=== PATIENT | male | born 1935 | race Caucasian/White ===

== ENCOUNTER 2020-12-11 11:09 | Inpatient (IN) | payer MEDICARE ==
[~2020-12-11] VITALS: Ht 172.7 cm; Wt 65.5 kg
[~2020-12-11 11:09] MED LIST: LEVO-28 PO; MELO-61 PO; MORP30TA PO; OXY10CRT PO; PANT40T PO; TAM04C PO
[2020-12-11 12:09] LABS: Basophils # (auto) 0.1 10 ^3/uL (0-0.2); Basophils % (auto) 1.4 % (0.0-2.0); Eosinophils # (auto) 0.4 10 ^3/uL (0-0.8); Eosinophils % (auto) 3.5 % (0.0-7.0); Hematocrit 39.4 % (41.0-53.0); Hemoglobin 13.7 g/dL (13.5-17.5); Lymphocytes # (auto) 2.5 10 ^3/uL (0.4-5.4); Lymphocytes % (auto) 25.1 % (10.0-50.0); Mean Corpuscular Hemoglobin 31.2 pg (28.0-32.0); Mean Corpuscular Hgb Conc. 34.8 g/dL (32.0-36.0); Mean Corpuscular Volume 89.7 fL (80.0-100.0); Monocytes % (auto) 9.5 % (0.0-12.0); Neutrophils # (auto) 6.1 10 ^3/uL (1.6-8.6); Neutrophils % (auto) 60.5 % (37.0-80.0); Nucleated Red Blood Cells % 0.1 %; Red Blood Cells 4.39 10^6/uL (4.5-5.90); Red Cell Distribution Width 14.4 % (11.8-14.3); White Blood Cell 10.1 10^3/uL (4.4-10.8)
[2020-12-11 12:37] LABS: Albumin 2.9 g/dL (3.4-5.0)
[2020-12-11 12:40] LABS: BUN/Creatinine Ratio 18.3; Total Protein 7.5 g/dL (6.4-8.2)
[2020-12-11 12:42] LABS: Magnesium 2.5 mg/dL (1.6-2.6)
[2020-12-11 12:45] LABS: Potassium 2.7 mmol/L (3.5-5.1)
[2020-12-11 14:06] LABS: INR 1.08 (0.9-1.15); Partial Thromboplastin Time 29.7 sec (23.0-31.2)
[2020-12-11] MEDS: POTASSIUM CHL 20MEQ/100ML 100 ML IV SCH ×2 (15:09→16:15)
[2020-12-11] MEDS ORDERED: ONDANSETRON HCL 4 MG/2 ML VIAL IV PRN (16:00)
[2020-12-11] MEDS ORDERED: MORPHINE SULFATE INJECTION 2 MG/ML SYRG IV PRN (16:00)
[2020-12-11] MEDS ORDERED: ACETAMINOPHEN 500 MG TAB PO PRN (16:00)
[2020-12-11] MEDS ORDERED: POTASSIUM EFFERVESENT TAB 25 MEQ GT ONE (16:00)
[2020-12-11] MEDS: FAMOTIDINE (10MG/ML) 2ML VL IV SCH (16:48)
[2020-12-11] MEDS: SOD CHL 0.9%/ KCL 40MEQ 1,000 ML IV SCH (16:58)
[2020-12-11 20:28] VITALS: BP 140/70
[2020-12-11 20:31] VITALS: BP 140/70
[2020-12-12] MEDS: SOD CHL 0.9%/ KCL 40MEQ 1,000 ML IV SCH ×3 (02:00→22:00)
[2020-12-12] MEDS: FAMOTIDINE (10MG/ML) 2ML VL IV SCH (04:35)
[2020-12-12 04:49] LABS: Urine Bacteria FEW /hpf (None Seen); Urine Blood 2+ /uL (Negative); Urine Hyaline Cast FEW /lpf (0 - 2); Urine Specific Gravity 1.009 (1.001-1.035); Urine WBC 3 /hpf (0 - 3)
[2020-12-12 05:25] VITALS: BP 123/71
[2020-12-12 08:02] LABS: Potassium 3.1 mmol/L (3.5-5.1)
[2020-12-12 08:08] LABS: Albumin 2.8 g/dL (3.4-5.0); Bilirubin, Total 1.1 mg/dL (0.2-1.0); Calcium 8.9 mg/dL (8.5-10.1); Total Protein 7.2 g/dL (6.4-8.2)
[2020-12-12 09:00] VITALS: BP 135/64
[2020-12-12] MEDS: PANTOPRAZOLE 40 MG TAB PO SCH (12:55)
[2020-12-12 13:00] VITALS: BP 123/72
[2020-12-12 17:00] VITALS: BP 127/68
[2020-12-12] MEDS ORDERED: POTASSIUM CHL 20 Meq TABLET PO ONE (18:15)
[2020-12-12] MEDS: TAMSULOSIN HYDROCHLORIDE 0.4 MG CAP PO SCH (18:44)
[2020-12-12] MEDS ORDERED: POTASSIUM EFFERVESENT TAB 25 MEQ GT ONE (19:00)
[2020-12-12 22:00] VITALS: BP 116/63
[2020-12-13 05:00] VITALS: BP 133/58
[2020-12-13] MEDS: SOD CHL 0.9%/ KCL 40MEQ 1,000 ML IV SCH ×3 (08:00→23:35)
[2020-12-13 09:00] VITALS: BP 124/69
[2020-12-13] MEDS: PANTOPRAZOLE 40 MG TAB PO SCH (10:12)
[2020-12-13] MEDS ORDERED: cefTRIAXone 1GM/50ML D5W 50 ML IV ONE (10:30)
[2020-12-13 13:00] VITALS: BP 128/71
[2020-12-13 13:33] LABS: Hematocrit 40.1 % (41.0-53.0); Hemoglobin 13.5 g/dL (13.5-17.5); Mean Corpuscular Hemoglobin 30.9 pg (28.0-32.0); Mean Corpuscular Hgb Conc. 33.8 g/dL (32.0-36.0); Mean Corpuscular Volume 91.5 fL (80.0-100.0); Red Blood Cells 4.39 10^6/uL (4.5-5.90); White Blood Cell 8.3 10^3/uL (4.4-10.8)
[2020-12-13 13:49] LABS: BUN/Creatinine Ratio 13.5; Calcium 9.1 mg/dL (8.5-10.1); Potassium 3.7 mmol/L (3.5-5.1)
[2020-12-13 13:52] LABS: Bilirubin, Total 0.9 mg/dL (0.2-1.0); Total Protein 7.3 g/dL (6.4-8.2)
[2020-12-13] MEDS ORDERED: metroNIDAZOLE 500MG/100ML 100 ML IV SCH (14:00)
[2020-12-13 14:01] LABS: Band Neutrophils % (manual) 0; Basophils % (manual) 0 (0.0-2.0); Blast Cells 0; Eosinophils % (manual) 0 (0-7); Metamyelocytes % 0; Promyelocytes % 0; Reactive Lymphocytes 0
[2020-12-13 14:03] LABS: Lymphocytes % (manual) 25 (10.0-50.0); Monocytes % (manual) 9 (0-12); Myelocytes % 1
[2020-12-13 17:00] VITALS: BP 120/62
[2020-12-13] MEDS: TAMSULOSIN HYDROCHLORIDE 0.4 MG CAP PO SCH (18:00)
[2020-12-13 22:00] VITALS: BP 117/55
[2020-12-13] MEDS: traMADol HCL 50 MG TAB PO PRN (22:29)
[2020-12-14 05:00] VITALS: BP 146/67
[2020-12-14] MEDS: cefTRIAXone 1GM/50ML D5W 50 ML IV SCH (08:58)
[2020-12-14 09:04] VITALS: BP 126/69
[2020-12-14] MEDS: PANTOPRAZOLE 40 MG TAB PO SCH (09:34)
[2020-12-14] MEDS ORDERED: LACTULOSE 20Gm/30ML SOLN PEG ONE (10:45)
[2020-12-14 12:59] VITALS: BP 123/70
[2020-12-14] MEDS: SODIUM CHLORIDE 0.9% 1,000 ML IV SCH (14:50)
[2020-12-14 16:18] VITALS: BP 145/75
[2020-12-14] MEDS: TAMSULOSIN HYDROCHLORIDE 0.4 MG CAP PO SCH (18:00)
[2020-12-14 22:00] VITALS: BP 146/73
[2020-12-15 01:19] LABS: Urine Bacteria MOD /hpf (None Seen); Urine Blood 3+ /uL (Negative); Urine Mucus FEW (None Seen); Urine Specific Gravity 1.013 (1.001-1.035); Urine WBC 53 /hpf (0 - 3)
[2020-12-15] MEDS: SODIUM CHLORIDE 0.9% 1,000 ML IV SCH (04:20)
[2020-12-15 05:00] VITALS: BP 140/75
[2020-12-15 05:47] LABS: Basophils # (auto) 0 10 ^3/uL (0-0.2); Basophils % (auto) 0.6 % (0.0-2.0); Eosinophils # (auto) 0.3 10 ^3/uL (0-0.8); Eosinophils % (auto) 5.1 % (0.0-7.0); Hematocrit 36.1 % (41.0-53.0); Hemoglobin 12.6 g/dL (13.5-17.5); Lymphocytes # (auto) 1.4 10 ^3/uL (0.4-5.4); Lymphocytes % (auto) 24.4 % (10.0-50.0); Mean Corpuscular Hemoglobin 32.1 pg (28.0-32.0); Mean Corpuscular Hgb Conc. 34.8 g/dL (32.0-36.0); Mean Corpuscular Volume 92.4 fL (80.0-100.0); Monocytes # (auto) 0.4 10 ^3/uL (0-1.3); Monocytes % (auto) 7.6 % (0.0-12.0); Neutrophils # (auto) 3.6 10 ^3/uL (1.6-8.6); Neutrophils % (auto) 62.3 % (37.0-80.0); Red Blood Cells 3.91 10^6/uL (4.5-5.90); Red Cell Distribution Width 15.1 % (11.8-14.3); White Blood Cell 5.7 10^3/uL (4.4-10.8)
[2020-12-15 06:05] LABS: INR 1.1 (0.9-1.15); Partial Thromboplastin Time 30.9 sec (23.0-31.2)
[2020-12-15 06:06] LABS: BUN/Creatinine Ratio 13.2; Calcium 8.6 mg/dL (8.5-10.1); Potassium 3.8 mmol/L (3.5-5.1)
[2020-12-15 08:40] VITALS: BP 160/72
[2020-12-15] MEDS: cefTRIAXone 1GM/50ML D5W 50 ML IV SCH (09:00)
[2020-12-15] MEDS: PANTOPRAZOLE 40 MG TAB PO SCH (09:39)
[2020-12-15 13:14] VITALS: BP 147/71
[2020-12-15] MEDS: traMADol HCL 50 MG TAB PO PRN (14:30)
[2020-12-15 16:52] VITALS: BP 134/60
[2020-12-15] MEDS: TAMSULOSIN HYDROCHLORIDE 0.4 MG CAP PO SCH (17:37)
[2020-12-15 22:00] VITALS: BP 137/61
[2020-12-16 05:00] VITALS: BP 123/58
[2020-12-16 09:00] VITALS: BP 131/80
[2020-12-16 13:00] VITALS: BP 128/59
[2020-12-16 14:18] VITALS: BP 128/89
[2020-12-16] MEDS: PANTOPRAZOLE 40 MG TAB PO SCH (15:01)
[2021-01-02] MEDS ORDERED: DOCU-94 PO (12:42)
== END 2020-12-16 17:34 | disposition home health service (06) | DRG 694 ==
LOC: ER 11:09 → EDBD 11:09 → OVERFLOW 15:47 → WEST WING 17:54
PROVIDERS: ADMIT Internal Medicine; ATTEND Internal Medicine
DX: N20.0 Calculus of kidney (principal); K56.7 Ileus, unspecified; N39.0 Urinary tract infection, site not specified; E44.0 Moderate protein-calorie malnutrition; E87.6 Hypokalemia; K80.20 Calculus of gallbladder without cholecystitis without obstruction; Z93.1 Gastrostomy status; I25.10 Atherosclerotic heart disease of native coronary artery without angina pectoris; M10.9 Gout, unspecified; R31.9 Hematuria, unspecified; N40.0 Benign prostatic hyperplasia without lower urinary tract symptoms; I10 Essential (primary) hypertension; Z74.01 Bed confinement status; Z20.822 Contact with and (suspected) exposure to COVID-19; Z83.3 Family history of diabetes mellitus; Z82.49 Family history of ischemic heart disease and other diseases of the circulatory system; Z80.3 Family history of malignant neoplasm of breast; Z80.42 Family history of malignant neoplasm of prostate; G89.29 Other chronic pain; Z68.21 Body mass index [BMI] 21.0-21.9, adult; Z87.442 Personal history of urinary calculi; Z90.49 Acquired absence of other specified parts of digestive tract; Z95.1 Presence of aortocoronary bypass graft; Z95.2 Presence of prosthetic heart valve
CPT/HCPCS: 36415; 71045; 74176; 76705; 76775; 78226; 80048; 80053; 81001; 83690; 83735; 84132; 84154; 85007; 85025; 85027; 85610; 85730; 86850; 86900; 86901; 87086; 87426; 93005; 93306; 96365; 96375; 97110; 97530; G0378; J0696; J3480; J3490

== ENCOUNTER 2020-12-26 23:01 | Inpatient (IN) | payer MEDICARE ==
[~2020-12-26] VITALS: Ht 167.6 cm; Wt 61.7 kg
[~2020-12-26 23:01] MED LIST changes: -LEVO-28 PO; -MELO-61 PO; -MORP30TA PO; -OXY10CRT PO
[2020-12-27 01:43] LABS: Basophils # (auto) 0 10 ^3/uL (0-0.2); Basophils % (auto) 0.4 % (0.0-2.0); Eosinophils # (auto) 0.1 10 ^3/uL (0-0.8); Eosinophils % (auto) 0.5 % (0.0-7.0); Hematocrit 41.5 % (41.0-53.0); Lymphocytes # (auto) 1.1 10 ^3/uL (0.4-5.4); Lymphocytes % (auto) 9.4 % (10.0-50.0); Mean Corpuscular Hemoglobin 30.5 pg (28.0-32.0); Mean Corpuscular Hgb Conc. 33.7 g/dL (32.0-36.0); Mean Corpuscular Volume 90.5 fL (80.0-100.0); Monocytes # (auto) 0.8 10 ^3/uL (0-1.3); Monocytes % (auto) 6.2 % (0.0-12.0); Neutrophils # (auto) 10.2 10 ^3/uL (1.6-8.6); Neutrophils % (auto) 83.5 % (37.0-80.0); Platelet Count (auto) 168 10^3/uL (140-450); Red Blood Cells 4.58 10^6/uL (4.5-5.90); Red Cell Distribution Width 14.8 % (11.8-14.3); White Blood Cell 12.2 10^3/uL (4.4-10.8)
[2020-12-27 01:50] LABS: Albumin 2.9 g/dL (3.4-5.0); Calcium 8.8 mg/dL (8.5-10.1); Magnesium 2.5 mg/dL (1.6-2.6); Potassium 3.9 mmol/L (3.5-5.1)
[2020-12-27 01:51] LABS: Bilirubin, Total 0.7 mg/dL (0.2-1.0); Total Protein 8.1 g/dL (6.4-8.2)
[2020-12-27 04:02] LABS: Basophils # (auto) 0.1 10 ^3/uL (0-0.2); Basophils % (auto) 0.7 % (0.0-2.0); Eosinophils # (auto) 0.1 10 ^3/uL (0-0.8); Eosinophils % (auto) 0.6 % (0.0-7.0); Hematocrit 42.3 % (41.0-53.0); Hemoglobin 14.4 g/dL (13.5-17.5); Lymphocytes % (auto) 15.8 % (10.0-50.0); Mean Corpuscular Hemoglobin 30.9 pg (28.0-32.0); Mean Corpuscular Hgb Conc. 34.1 g/dL (32.0-36.0); Mean Corpuscular Volume 90.7 fL (80.0-100.0); Monocytes # (auto) 0.9 10 ^3/uL (0-1.3); Monocytes % (auto) 7.1 % (0.0-12.0); Neutrophils # (auto) 9.6 10 ^3/uL (1.6-8.6); Neutrophils % (auto) 75.8 % (37.0-80.0); Nucleated Red Blood Cells % 0.1 %; Platelet Count (auto) 177 10^3/uL (140-450); Red Blood Cells 4.66 10^6/uL (4.5-5.90); Red Cell Distribution Width 15.1 % (11.8-14.3); White Blood Cell 12.7 10^3/uL (4.4-10.8)
[2020-12-27] MEDS ORDERED: IOHEXOL 300 MG/ML 100ML BOTTLE IJ ONE (04:21)
[2020-12-27 04:22] LABS: Alanine Aminotransferase 11 U/L (16-61); Anion Gap 7 (5-15); Aspartate Aminotransferase 15 U/L (15-37); BUN/Creatinine Ratio 17.5; Blood Urea Nitrogen 17 mg/dL (7-18); Calcium 9.2 mg/dL (8.5-10.1); Carbon Dioxide 30 mmol/L (21-32); Chloride 105 mmol/L (98-107); GFR African American 94 mL/min; GFR Non-African American 78 mL/min; Glucose 139 mg/dL (74-106); Lipase 43 U/L (73-393); Magnesium 2.7 mg/dL (1.6-2.6); Potassium 3.8 mmol/L (3.5-5.1); Sodium 142 mmol/L (136-145)
[2020-12-27 04:27] LABS: Alkaline Phosphatase 92 U/L (45-117); Bilirubin, Total 0.8 mg/dL (0.2-1.0); Total Protein 8.5 g/dL (6.4-8.2)
[2020-12-27] MEDS ORDERED: NITROGLYCERIN 0.4 MG SL TAB SL PRN (07:30)
[2020-12-27] MEDS ORDERED: ONDANSETRON HCL 4 MG/2 ML VIAL IV PRN (07:30)
[2020-12-27] MEDS ORDERED: MORPHINE SULFATE 4 MG/ML SYR/VIAL IV PRN (07:30)
[2020-12-27] MEDS ORDERED: MORPHINE SULF INJ 2 MG/ML SYRINGE 1ML IV PRN (07:30)
[2020-12-27] MEDS: SODIUM CHLORIDE 0.9% 1,000 ML IV SCH ×2 (07:55→23:15)
[2020-12-27] MEDS: cefTRIAXone 1GM/50ML D5W 50 ML IV SCH (09:43)
[2020-12-27] MEDS: PANTOPRAZOLE 40 MG/10 ML VIAL INJ IV SCH (10:39)
[2020-12-27 13:20] VITALS: BP 115/64
[2020-12-27] MEDS ORDERED: hydrALAZINE HCL 20 MG/ML VL IV PRN (14:00)
[2020-12-27] MEDS ORDERED: GASTROGRAFIN 120 ML SOL ONE (14:19)
[2020-12-27] MEDS ORDERED: ASCO500T11 PO (14:28)
[2020-12-27 17:21] VITALS: BP 127/67
[2020-12-27 22:00] VITALS: BP 149/83
[2020-12-28 01:43] LABS: Urine Bacteria FEW /hpf (None Seen); Urine Blood 1+ /uL (Negative); Urine Hyaline Cast FEW /lpf (0 - 2); Urine Specific Gravity 1.047 (1.001-1.035); Urine WBC 2 /hpf (0 - 3)
[2020-12-28 05:00] VITALS: BP 132/65
[2020-12-28 07:39] LABS: Basophils # (auto) 0.1 10 ^3/uL (0-0.2); Basophils % (auto) 0.5 % (0.0-2.0); Eosinophils # (auto) 0.1 10 ^3/uL (0-0.8); Eosinophils % (auto) 1.3 % (0.0-7.0); Hematocrit 37.2 % (41.0-53.0); Hemoglobin 12.6 g/dL (13.5-17.5); Lymphocytes # (auto) 1.7 10 ^3/uL (0.4-5.4); Lymphocytes % (auto) 15.8 % (10.0-50.0); Mean Corpuscular Hemoglobin 31.3 pg (28.0-32.0); Mean Corpuscular Hgb Conc. 33.8 g/dL (32.0-36.0); Mean Corpuscular Volume 92.7 fL (80.0-100.0); Monocytes # (auto) 0.9 10 ^3/uL (0-1.3); Monocytes % (auto) 8.7 % (0.0-12.0); Neutrophils # (auto) 7.8 10 ^3/uL (1.6-8.6); Neutrophils % (auto) 73.7 % (37.0-80.0); Platelet Count (auto) 137 10^3/uL (140-450); Red Blood Cells 4.02 10^6/uL (4.5-5.90); Red Cell Distribution Width 15.4 % (11.8-14.3); White Blood Cell 10.5 10^3/uL (4.4-10.8)
[2020-12-28 08:00] VITALS: BP 112/60
[2020-12-28 08:02] LABS: Albumin 2.7 g/dL (3.4-5.0); BUN/Creatinine Ratio 22.3; Bilirubin, Total 0.8 mg/dL (0.2-1.0); Calcium 8.5 mg/dL (8.5-10.1)
[2020-12-28] MEDS: PANTOPRAZOLE 40 MG/10 ML VIAL INJ IV SCH (10:14)
[2020-12-28] MEDS: SODIUM CHLORIDE 0.9% 1,000 ML IV SCH ×2 (10:14→23:43)
[2020-12-28] MEDS: cefTRIAXone 1GM/50ML D5W 50 ML IV SCH (10:14)
[2020-12-28 12:30] VITALS: BP 118/62
[2020-12-28 17:00] VITALS: BP 128/64
[2020-12-28 20:00] VITALS: BP 127/70
[2020-12-28 22:00] VITALS: BP 127/70
[2020-12-29 05:00] VITALS: BP 145/67
[2020-12-29 07:11] LABS: Calcium 8.6 mg/dL (8.5-10.1); Potassium 3.8 mmol/L (3.5-5.1)
[2020-12-29 07:15] LABS: BUN/Creatinine Ratio 24.7
[2020-12-29 09:00] VITALS: BP 139/83
[2020-12-29] MEDS: cefTRIAXone 1GM/50ML D5W 50 ML IV SCH (09:53)
[2020-12-29] MEDS: PANTOPRAZOLE 40 MG/10 ML VIAL INJ IV SCH (09:53)
[2020-12-29] MEDS: D5W/SOD CHL 0.45% 1,000 ML IV SCH ×2 (10:02→22:50)
[2020-12-29 13:00] VITALS: BP 145/64
[2020-12-29 17:00] VITALS: BP 133/63
[2020-12-29 22:00] VITALS: BP 149/70
[2020-12-29] MEDS: MUPIROCIN 2% OINT 15gm or 22gm EACHNOSTRI SCH (22:14)
[2020-12-30 05:00] VITALS: BP 154/76
[2020-12-30 06:52] LABS: Basophils # (auto) 0 10 ^3/uL (0-0.2); Basophils % (auto) 0.5 % (0.0-2.0); Eosinophils # (auto) 0.3 10 ^3/uL (0-0.8); Eosinophils % (auto) 3.5 % (0.0-7.0); Hematocrit 34.4 % (41.0-53.0); Hemoglobin 12.2 g/dL (13.5-17.5); Lymphocytes # (auto) 1.8 10 ^3/uL (0.4-5.4); Lymphocytes % (auto) 23.2 % (10.0-50.0); Mean Corpuscular Hemoglobin 32.1 pg (28.0-32.0); Mean Corpuscular Hgb Conc. 35.5 g/dL (32.0-36.0); Mean Corpuscular Volume 90.4 fL (80.0-100.0); Monocytes # (auto) 0.7 10 ^3/uL (0-1.3); Monocytes % (auto) 8.7 % (0.0-12.0); Neutrophils % (auto) 64.1 % (37.0-80.0); Platelet Count (auto) 115 10^3/uL (140-450); Red Cell Distribution Width 14.9 % (11.8-14.3); White Blood Cell 7.8 10^3/uL (4.4-10.8)
[2020-12-30 07:09] LABS: Potassium 3.2 mmol/L (3.5-5.1)
[2020-12-30 07:12] LABS: BUN/Creatinine Ratio 19.7; Calcium 8.6 mg/dL (8.5-10.1); Magnesium 2.4 mg/dL (1.6-2.6)
[2020-12-30 09:00] VITALS: BP 138/63
[2020-12-30] MEDS: cefTRIAXone 1GM/50ML D5W 50 ML IV SCH (10:28)
[2020-12-30] MEDS: PANTOPRAZOLE 40 MG/10 ML VIAL INJ IV SCH (10:29)
[2020-12-30] MEDS: MUPIROCIN 2% OINT 15gm or 22gm EACHNOSTRI SCH ×2 (10:29→23:04)
[2020-12-30] MEDS: D5W/SOD CHL 0.45% 1,000 ML IV SCH ×2 (10:34→11:51)
[2020-12-30] MEDS ORDERED: POTASSIUM EFFERVESENT TAB 25 MEQ PO ONE (11:00)
[2020-12-30 13:00] VITALS: BP 127/65
[2020-12-30 16:39] VITALS: BP 128/69
[2020-12-30] MEDS: TAMSULOSIN HYDROCHLORIDE 0.4 MG CAP PO SCH (17:32)
[2020-12-30 22:00] VITALS: BP 119/63
[2020-12-31] MEDS: D5W/SOD CHL 0.45% 1,000 ML IV SCH ×2 (02:51→20:20)
[2020-12-31 05:00] VITALS: BP 137/67
[2020-12-31 09:00] VITALS: BP 126/69
[2020-12-31] MEDS: MUPIROCIN 2% OINT 15gm or 22gm EACHNOSTRI SCH ×2 (10:09→22:00)
[2020-12-31] MEDS: PANTOPRAZOLE 40 MG/10 ML VIAL INJ IV SCH (10:09)
[2020-12-31 13:00] VITALS: BP 119/71
[2020-12-31 17:00] VITALS: BP 112/64
[2020-12-31] MEDS: TAMSULOSIN HYDROCHLORIDE 0.4 MG CAP PO SCH (18:04)
[2020-12-31 22:00] VITALS: BP 127/67
[2021-01-01 05:00] VITALS: BP 100/61
[2021-01-01 09:00] VITALS: BP 148/69
[2021-01-01] MEDS: PANTOPRAZOLE 40 MG/10 ML VIAL INJ IV SCH (10:12)
[2021-01-01] MEDS: MUPIROCIN 2% OINT 15gm or 22gm EACHNOSTRI SCH ×2 (10:12→21:20)
[2021-01-01 13:00] VITALS: BP 115/64
[2021-01-01] MEDS: D5W/SOD CHL 0.45% 1,000 ML IV SCH (13:12)
[2021-01-01 17:00] VITALS: BP 107/61
[2021-01-01] MEDS: TAMSULOSIN HYDROCHLORIDE 0.4 MG CAP PO SCH (17:19)
[2021-01-01 22:00] VITALS: BP 84/52
[2021-01-02 05:00] VITALS: BP 110/58
[2021-01-02] MEDS: D5W/SOD CHL 0.45% 1,000 ML IV SCH (05:24)
[2021-01-02 09:14] VITALS: BP 109/66
[2021-01-02] MEDS: PANTOPRAZOLE 40 MG/10 ML VIAL INJ IV SCH (10:27)
[2021-01-02] MEDS: MUPIROCIN 2% OINT 15gm or 22gm EACHNOSTRI SCH (10:55)
[2021-01-02] MEDS ORDERED: DOCU-94 PO (12:42)
[2021-01-02 13:39] VITALS: BP 120/62
[2021-01-02 15:06] VITALS: BP 120/62
== END 2021-01-02 16:35 | disposition home health service (06) | DRG 389 ==
LOC: EDBD 23:01 → ER 23:13 → TELE 12-27 07:18 → TELE-EAST 12-27 12:57
PROVIDERS: ADMIT Nurse Practitioner; ATTEND Internal Medicine
DX: K56.609 Unspecified intestinal obstruction, unspecified as to partial versus complete obstruction (principal); E44.0 Moderate protein-calorie malnutrition; R65.10 Systemic inflammatory response syndrome (SIRS) of non-infectious origin without acute organ dysfunction; Z20.822 Contact with and (suspected) exposure to COVID-19; E87.6 Hypokalemia; I10 Essential (primary) hypertension; M10.9 Gout, unspecified; N40.0 Benign prostatic hyperplasia without lower urinary tract symptoms; I25.10 Atherosclerotic heart disease of native coronary artery without angina pectoris; Z80.3 Family history of malignant neoplasm of breast; Z80.42 Family history of malignant neoplasm of prostate; Z83.3 Family history of diabetes mellitus; Z87.442 Personal history of urinary calculi; Z87.440 Personal history of urinary (tract) infections; Z95.1 Presence of aortocoronary bypass graft; Z79.899 Other long term (current) drug therapy; Z79.891 Long term (current) use of opiate analgesic; Z79.01 Long term (current) use of anticoagulants; I25.2 Old myocardial infarction; Z90.49 Acquired absence of other specified parts of digestive tract; Z68.22 Body mass index [BMI] 22.0-22.9, adult; Z82.49 Family history of ischemic heart disease and other diseases of the circulatory system; Z86.73 Personal history of transient ischemic attack (TIA), and cerebral infarction without residual deficits
CPT/HCPCS: 36415; 71045; 74018; 74177; 74250; 80048; 80053; 81001; 83605; 83690; 83735; 84132; 84484; 85025; 85049; 87081; 87426; 93005; 96365; 96366; 96375; 97110; 97530; C9113; G0378; J0696; J2405

== ENCOUNTER 2021-01-19 12:04 | Emergency (ER) | payer MEDICARE ==
[~2021-01-19] VITALS: Ht 170.2 cm; Wt 74.8 kg
[~2021-01-19 12:04] MED LIST changes: +ASCO500T11 PO; +DOCU-94 PO
[2021-01-19] MEDS ORDERED: SODIUM CHLORIDE 0.9% 500 ML IVB ONE (12:15)
[2021-01-19 13:57] LABS: Basophils # (auto) 0 10 ^3/uL (0-0.2); Basophils % (auto) 0.6 % (0.0-2.0); Eosinophils # (auto) 0.4 10 ^3/uL (0-0.8); Eosinophils % (auto) 4.9 % (0.0-7.0); Hematocrit 40.4 % (41.0-53.0); Hemoglobin 13.8 g/dL (13.5-17.5); Lymphocytes % (auto) 36.5 % (10.0-50.0); Mean Corpuscular Hemoglobin 30.8 pg (28.0-32.0); Mean Corpuscular Hgb Conc. 34.1 g/dL (32.0-36.0); Mean Corpuscular Volume 90.4 fL (80.0-100.0); Monocytes # (auto) 0.7 10 ^3/uL (0-1.3); Monocytes % (auto) 8.4 % (0.0-12.0); Neutrophils % (auto) 49.6 % (37.0-80.0); Nucleated Red Blood Cells % 0.1 %; Red Blood Cells 4.47 10^6/uL (4.5-5.90); Red Cell Distribution Width 15.2 % (11.8-14.3); White Blood Cell 8.1 10^3/uL (4.4-10.8)
[2021-01-19 14:17] LABS: BUN/Creatinine Ratio 15.6; Total Protein 7.8 g/dL (6.4-8.2)
[2021-01-19] MEDS ORDERED: POTASSIUM EFFERVESENT TAB 25 MEQ GT ONE (14:45)
[2021-01-19] MEDS ORDERED: CEPHALEXIN 250 MG/5ml ORAL Susp 200ML BTL GT ONE (15:00)
[2021-01-19 15:19] VITALS: BP 158/67
== END 2021-01-19 15:02 | disposition home or self-care (01) ==
LOC: ER 12:04 → EDBD 12:04 → ER 15:02
DX: L03.311 Cellulitis of abdominal wall (principal); E87.6 Hypokalemia; K59.00 Constipation, unspecified; I10 Essential (primary) hypertension; I25.2 Old myocardial infarction; I25.10 Atherosclerotic heart disease of native coronary artery without angina pectoris; M10.9 Gout, unspecified; Z86.73 Personal history of transient ischemic attack (TIA), and cerebral infarction without residual deficits; Z79.899 Other long term (current) drug therapy
CPT/HCPCS: 36415; 74022; 74176; 80053; 83690; 85025; 99285; J7040

== ENCOUNTER 2021-05-15 18:25 | Inpatient (IN) | payer MEDICARE ==
[~2021-05-15] VITALS: Ht 170.2 cm; Wt 71.0 kg
[2021-05-15] MEDS ORDERED: methylPREDNISolone SOD SUCC 125 MG/2 ML VL IV ONE (19:30)
[2021-05-15] MEDS ORDERED: cefTRIAXone 1GM/50ML D5W 50 ML IV ONE (20:30)
[2021-05-15 21:31] LABS: Basophils # (auto) 0 10 ^3/uL (0-0.2); Basophils % (auto) 0.2 % (0.0-2.0); Eosinophils # (auto) 0 10 ^3/uL (0-0.8); Hematocrit 34.4 % (41.0-53.0); Hemoglobin 11.8 g/dL (13.5-17.5); Lymphocytes # (auto) 0.9 10 ^3/uL (0.4-5.4); Lymphocytes % (auto) 15.4 % (10.0-50.0); Mean Corpuscular Hemoglobin 29.9 pg (28.0-32.0); Mean Corpuscular Hgb Conc. 34.4 g/dL (32.0-36.0); Mean Corpuscular Volume 86.9 fL (80.0-100.0); Monocytes # (auto) 0.3 10 ^3/uL (0-1.3); Monocytes % (auto) 4.8 % (0.0-12.0); Neutrophils # (auto) 4.7 10 ^3/uL (1.6-8.6); Neutrophils % (auto) 79.6 % (37.0-80.0); Nucleated Red Blood Cells % 0.2 %; Red Blood Cells 3.96 10^6/uL (4.5-5.90); Red Cell Distribution Width 15.3 % (11.8-14.3); White Blood Cell 5.9 10^3/uL (4.4-10.8)
[2021-05-15] MEDS ORDERED: MORPHINE SULFATE INJECTION 2 MG/ML SYRG IV PRN (21:45)
[2021-05-15] MEDS ORDERED: ACETAMINOPHEN 500 MG TAB PO PRN (21:45)
[2021-05-15] MEDS ORDERED: NITROGLYCERIN 0.4 MG SL TAB SL PRN (21:45)
[2021-05-15] MEDS ORDERED: ONDANSETRON HCL 4 MG/2 ML VIAL IV PRN (21:45)
[2021-05-15] MEDS ORDERED: ALBUTEROL SULF HFA 90MCG INH 200DOSE IN PRN (21:45)
[2021-05-15 21:48] LABS: Albumin 2.2 g/dL (3.4-5.0); Calcium 7.1 mg/dL (8.5-10.1); Potassium 3.7 mmol/L (3.5-5.1)
[2021-05-15 21:56] LABS: BUN/Creatinine Ratio 39.3; Bilirubin, Total 0.5 mg/dL (0.2-1.0); CRP High Sensitivity 4.45 mg/dL (< 0.3); Total Protein 6.6 g/dL (6.4-8.2)
[2021-05-15] MEDS: BUDESONIDE (INHALATION) 180 MCG IH IN SCH (22:00)
[2021-05-15] MEDS ORDERED: AZITHROMYCIN 500MG/ 250ML 250 ML IV SCH (22:30)
[2021-05-15] MEDS: AZITHROMYCIN 500MG/ 250ML 250 ML IV SCH (23:00)
[2021-05-15] MEDS ORDERED: REMDESIVIR PER PHARMACY 0 ML IV SCH (23:15)
[2021-05-16 00:56] VITALS: BP 100/46
[2021-05-16 07:58] LABS: Basophils # (auto) 0 10 ^3/uL (0-0.2); Eosinophils # (auto) 0 10 ^3/uL (0-0.8); Hematocrit 34.1 % (41.0-53.0); Lymphocytes # (auto) 0.4 10 ^3/uL (0.4-5.4); Red Cell Distribution Width 15.2 % (11.8-14.3)
[2021-05-16 08:00] LABS: Hemoglobin 12.1 g/dL (13.5-17.5); Lymphocytes % (auto) 7.7 % (10.0-50.0); Mean Corpuscular Hemoglobin 30.5 pg (28.0-32.0); Mean Corpuscular Hgb Conc. 35.6 g/dL (32.0-36.0); Mean Corpuscular Volume 85.6 fL (80.0-100.0); Monocytes # (auto) 0.2 10 ^3/uL (0-1.3); Monocytes % (auto) 2.9 % (0.0-12.0); Neutrophils # (auto) 4.9 10 ^3/uL (1.6-8.6); Neutrophils % (auto) 89.4 % (37.0-80.0); Red Blood Cells 3.98 10^6/uL (4.5-5.90); White Blood Cell 5.5 10^3/uL (4.4-10.8)
[2021-05-16 08:11] LABS: Albumin 2.2 g/dL (3.4-5.0); Calcium 7.3 mg/dL (8.5-10.1); Potassium 3.6 mmol/L (3.5-5.1)
[2021-05-16 08:14] LABS: BUN/Creatinine Ratio 40.4; Bilirubin, Total 0.4 mg/dL (0.2-1.0)
[2021-05-16] MEDS: ZINC SULFATE 220mg CAP or TAB PO SCH (09:44)
[2021-05-16] MEDS: DexAMETHasone SOD PHOS 10MG/1ML VIAL INJ IV SCH (09:44)
[2021-05-16] MEDS: cefTRIAXone 1GM/50ML D5W 50 ML IV SCH (09:44)
[2021-05-16] MEDS: ASCORBIC ACID 1,000 MG TAB PO SCH (09:44)
[2021-05-16] MEDS: PANTOPRAZOLE 40 MG TAB PO SCH (09:44)
[2021-05-16] MEDS: CHOLECALCIFEROL (VITD3) 2,000 UNIT CAP/TAB PO SCH (09:44)
[2021-05-16] MEDS ORDERED: ASPirin 81 mg TAB PO SCH (10:00)
[2021-05-16] MEDS ORDERED: TRAM50TA2 PO (10:28)
[2021-05-16 13:00] VITALS: BP 152/102
[2021-05-16] MEDS ORDERED: REMDESIVIR 200 MG in NS 210ml LOADING DOSE ADULT IV ONE (13:00)
[2021-05-16] MEDS: BUDESONIDE (INHALATION) 180 MCG IH IN SCH ×2 (13:54→19:47)
[2021-05-16 15:05] VITALS: BP 98/53
[2021-05-16 17:00] VITALS: BP 98/53
[2021-05-16] MEDS: ENOXAPARIN SOD 40 MG/0.4 ML SYRINGE SC SCH (18:45)
[2021-05-16] MEDS: TAMSULOSIN HYDROCHLORIDE 0.4 MG CAP PO SCH (18:45)
[2021-05-16 21:52] VITALS: BP 102/52
[2021-05-16] MEDS: ATORVASTATIN 20 MG TAB PO SCH (22:27)
[2021-05-16] MEDS: AZITHROMYCIN 500MG/ 250ML 250 ML IV SCH (22:27)
[2021-05-17 05:00] VITALS: BP 114/62
[2021-05-17] MEDS: BUDESONIDE (INHALATION) 0.5 MG/2 ML NEB NEB SCH ×2 (06:30→17:32)
[2021-05-17 09:00] VITALS: BP 108/48
[2021-05-17] MEDS: cefTRIAXone 1GM/50ML D5W 50 ML IV SCH (09:00)
[2021-05-17 11:01] LABS: Basophils # (auto) 0 10 ^3/uL (0-0.2); Basophils % (auto) 0.1 % (0.0-2.0); Eosinophils # (auto) 0 10 ^3/uL (0-0.8); Eosinophils % (auto) 0.1 % (0.0-7.0); Hematocrit 35.7 % (41.0-53.0); Hemoglobin 12.4 g/dL (13.5-17.5); Lymphocytes # (auto) 0.6 10 ^3/uL (0.4-5.4); Mean Corpuscular Hemoglobin 29.8 pg (28.0-32.0); Mean Corpuscular Hgb Conc. 34.9 g/dL (32.0-36.0); Mean Corpuscular Volume 85.4 fL (80.0-100.0); Monocytes # (auto) 0.6 10 ^3/uL (0-1.3); Monocytes % (auto) 9.3 % (0.0-12.0); Neutrophils # (auto) 5.1 10 ^3/uL (1.6-8.6); Neutrophils % (auto) 81.5 % (37.0-80.0); Nucleated Red Blood Cells % 0.5 %; Red Blood Cells 4.18 10^6/uL (4.5-5.90); Red Cell Distribution Width 15.6 % (11.8-14.3); White Blood Cell 6.3 10^3/uL (4.4-10.8)
[2021-05-17 11:03] LABS: INR 0.94 (0.9-1.15)
[2021-05-17 11:19] LABS: Calcium 7.9 mg/dL (8.5-10.1); Potassium 4.3 mmol/L (3.5-5.1)
[2021-05-17 11:29] LABS: BUN/Creatinine Ratio 39.6; Bilirubin, Total 0.4 mg/dL (0.2-1.0); CRP High Sensitivity 3.64 mg/dL (< 0.3); Magnesium 3.2 mg/dL (1.6-2.6); Total Protein 6.7 g/dL (6.4-8.2)
[2021-05-17] MEDS: DexAMETHasone SOD PHOS 10MG/1ML VIAL INJ IV SCH (11:36)
[2021-05-17] MEDS: ASPirin 81 mg TAB PO SCH (11:37)
[2021-05-17] MEDS: PANTOPRAZOLE 40 MG TAB PO SCH (11:37)
[2021-05-17] MEDS: ZINC SULFATE 220mg CAP or TAB PO SCH (11:37)
[2021-05-17] MEDS: ENOXAPARIN SOD 40 MG/0.4 ML SYRINGE SC SCH (11:38)
[2021-05-17] MEDS: ASCORBIC ACID 1,000 MG TAB PO SCH (11:38)
[2021-05-17] MEDS: CHOLECALCIFEROL (VITD3) 2,000 UNIT CAP/TAB PO SCH (11:38)
[2021-05-17 13:00] VITALS: BP 110/49
[2021-05-17] MEDS: REMDESIVIR 100mg 100 MG in SODIUM CHL 0.9% 230 ML IV SCH (15:46)
[2021-05-17 17:00] VITALS: BP 97/52
[2021-05-17] MEDS: TAMSULOSIN HYDROCHLORIDE 0.4 MG CAP PO SCH (18:11)
[2021-05-17 22:00] VITALS: BP 114/60
[2021-05-17] MEDS: ATORVASTATIN 20 MG TAB PO SCH (23:15)
[2021-05-17] MEDS: AZITHROMYCIN 500MG/ 250ML 250 ML IV SCH (23:15)
[2021-05-18 05:00] VITALS: BP 113/58
[2021-05-18] MEDS: ALBUTEROL SULF 2.5 MG/0.5ML(0.5%) NEB SOLN NEB PRN ×2 (06:08→21:01)
[2021-05-18] MEDS: BUDESONIDE (INHALATION) 0.5 MG/2 ML NEB NEB SCH ×2 (06:08→21:01)
[2021-05-18 09:00] VITALS: BP 103/49
[2021-05-18] MEDS ORDERED: ADENOSINE 6 MG/2 ML INJ IV ONE ×3 (09:00→12:14)
[2021-05-18] MEDS ORDERED: SODIUM CHLORIDE 0.9% 1,000 ML IV ONE (09:45)
[2021-05-18] MEDS ORDERED: AMIODARONE 450mg/250ml AE 250 ML IV SCH ×2 (10:00→16:00)
[2021-05-18] MEDS: SODIUM CHLORIDE 0.9% 1,000 ML IV SCH (10:58)
[2021-05-18] MEDS: cefTRIAXone 1GM/50ML D5W 50 ML IV SCH (10:59)
[2021-05-18] MEDS: ENOXAPARIN SOD 40 MG/0.4 ML SYRINGE SC SCH ×2 (11:00→21:15)
[2021-05-18] MEDS: ASCORBIC ACID 1,000 MG TAB PO SCH (11:00)
[2021-05-18] MEDS: ZINC SULFATE 220mg CAP or TAB PO SCH (11:00)
[2021-05-18] MEDS: PANTOPRAZOLE 40 MG TAB PO SCH (11:00)
[2021-05-18] MEDS: ASPirin 81 mg TAB PO SCH (11:00)
[2021-05-18] MEDS: CHOLECALCIFEROL (VITD3) 2,000 UNIT CAP/TAB PO SCH (11:00)
[2021-05-18] MEDS: DexAMETHasone SOD PHOS 10MG/1ML VIAL INJ IV SCH (11:01)
[2021-05-18] MEDS ORDERED: AMIODARONE HCL (50 MG/ ML) 3 ML VIAL IV ONE (12:14)
[2021-05-18 13:00] VITALS: BP 88/47
[2021-05-18 15:12] LABS: Basophils # (auto) 0 10 ^3/uL (0-0.2); Basophils % (auto) 0.1 % (0.0-2.0); Eosinophils # (auto) 0 10 ^3/uL (0-0.8); Hematocrit 33.1 % (41.0-53.0); Hemoglobin 11.5 g/dL (13.5-17.5); Lymphocytes # (auto) 0.5 10 ^3/uL (0.4-5.4); Lymphocytes % (auto) 6.4 % (10.0-50.0); Mean Corpuscular Hemoglobin 29.9 pg (28.0-32.0); Mean Corpuscular Hgb Conc. 34.8 g/dL (32.0-36.0); Mean Corpuscular Volume 85.7 fL (80.0-100.0); Monocytes # (auto) 0.7 10 ^3/uL (0-1.3); Monocytes % (auto) 10.2 % (0.0-12.0); Neutrophils # (auto) 5.9 10 ^3/uL (1.6-8.6); Neutrophils % (auto) 83.3 % (37.0-80.0); Nucleated Red Blood Cells % 0.1 %; Red Blood Cells 3.86 10^6/uL (4.5-5.90); Red Cell Distribution Width 15.3 % (11.8-14.3); White Blood Cell 7.1 10^3/uL (4.4-10.8)
[2021-05-18 15:28] LABS: Albumin 1.9 g/dL (3.4-5.0); Calcium 7.6 mg/dL (8.5-10.1); Potassium 3.4 mmol/L (3.5-5.1)
[2021-05-18 15:31] LABS: Bilirubin, Total 0.3 mg/dL (0.2-1.0); Total Protein 5.8 g/dL (6.4-8.2)
[2021-05-18] MEDS: REMDESIVIR 100mg 100 MG in SODIUM CHL 0.9% 230 ML IV SCH (16:01)
[2021-05-18] MEDS ORDERED: POTASSIUM CHL 20 Meq TABLET PO ONE (16:15)
[2021-05-18 17:00] VITALS: BP 107/59
[2021-05-18] MEDS: Ensure HIGH Protein Chocolate 8oz Bottle GT SCH (20:11)
[2021-05-18] MEDS: TAMSULOSIN HYDROCHLORIDE 0.4 MG CAP PO SCH (20:11)
[2021-05-18] MEDS: ATORVASTATIN 20 MG TAB PO SCH (21:15)
[2021-05-18] MEDS: AZITHROMYCIN 500MG/ 250ML 250 ML IV SCH (21:16)
[2021-05-18 22:00] VITALS: BP 119/62
[2021-05-19] MEDS: SODIUM CHLORIDE 0.9% 1,000 ML IV SCH (01:23)
[2021-05-19 03:28] VITALS: BP 119/62
[2021-05-19 05:00] VITALS: BP 120/72
[2021-05-19] MEDS: BUDESONIDE (INHALATION) 0.5 MG/2 ML NEB NEB SCH ×2 (06:08→21:03)
[2021-05-19 06:53] LABS: Calcium 7.5 mg/dL (8.5-10.1)
[2021-05-19 06:56] LABS: BUN/Creatinine Ratio 33.9; CRP High Sensitivity 0.85 mg/dL (< 0.3)
[2021-05-19 06:59] LABS: Basophils # (auto) 0 10 ^3/uL (0-0.2); Basophils % (auto) 0.1 % (0.0-2.0); Eosinophils # (auto) 0 10 ^3/uL (0-0.8); Hematocrit 30.9 % (41.0-53.0); Hemoglobin 10.7 g/dL (13.5-17.5); Lymphocytes # (auto) 0.5 10 ^3/uL (0.4-5.4); Lymphocytes % (auto) 8.4 % (10.0-50.0); Mean Corpuscular Hgb Conc. 34.8 g/dL (32.0-36.0); Mean Corpuscular Volume 86.4 fL (80.0-100.0); Monocytes # (auto) 0.9 10 ^3/uL (0-1.3); Monocytes % (auto) 14.6 % (0.0-12.0); Neutrophils # (auto) 4.9 10 ^3/uL (1.6-8.6); Neutrophils % (auto) 76.9 % (37.0-80.0); Nucleated Red Blood Cells % 0.1 %; Red Blood Cells 3.57 10^6/uL (4.5-5.90); Red Cell Distribution Width 15.2 % (11.8-14.3); White Blood Cell 6.3 10^3/uL (4.4-10.8)
[2021-05-19] MEDS: Ensure HIGH Protein Chocolate 8oz Bottle GT SCH ×3 (08:00→21:00)
[2021-05-19 09:00] VITALS: BP 110/72
[2021-05-19] MEDS: cefTRIAXone 1GM/50ML D5W 50 ML IV SCH (09:01)
[2021-05-19] MEDS: DexAMETHasone SOD PHOS 10MG/1ML VIAL INJ IV SCH (09:06)
[2021-05-19] MEDS: ENOXAPARIN SOD 40 MG/0.4 ML SYRINGE SC SCH ×2 (09:08→21:07)
[2021-05-19] MEDS: PANTOPRAZOLE 40 MG TAB PO SCH (09:10)
[2021-05-19] MEDS: ASCORBIC ACID 1,000 MG TAB GT SCH (09:10)
[2021-05-19] MEDS: ZINC SULFATE 220mg CAP or TAB GT SCH (09:11)
[2021-05-19] MEDS: CHOLECALCIFEROL (VITD3) 2,000 UNIT CAP/TAB PO SCH (09:11)
[2021-05-19] MEDS: ASPirin 81 mg TAB PO SCH (09:12)
[2021-05-19 13:00] VITALS: BP 148/46
[2021-05-19] MEDS: REMDESIVIR 100mg 100 MG in SODIUM CHL 0.9% 230 ML IV SCH (14:09)
[2021-05-19 17:00] VITALS: BP 143/69
[2021-05-19] MEDS: TAMSULOSIN HYDROCHLORIDE 0.4 MG CAP PO SCH (17:36)
[2021-05-19] MEDS: ALBUTEROL SULF 2.5 MG/0.5ML(0.5%) NEB SOLN NEB PRN (21:03)
[2021-05-19] MEDS: AMIODARONE HCL 200 MG TAB GT SCH (21:07)
[2021-05-19] MEDS: ATORVASTATIN 20 MG TAB PO SCH (21:07)
[2021-05-19 22:00] VITALS: BP 146/76
[2021-05-19] MEDS: AZITHROMYCIN 500MG/ 250ML 250 ML IV SCH (22:16)
[2021-05-20 05:00] VITALS: BP 137/56
[2021-05-20] MEDS: ALBUTEROL SULF 2.5 MG/0.5ML(0.5%) NEB SOLN NEB PRN ×2 (07:04→22:13)
[2021-05-20] MEDS: BUDESONIDE (INHALATION) 0.5 MG/2 ML NEB NEB SCH ×2 (07:04→22:12)
[2021-05-20] MEDS: cefTRIAXone 1GM/50ML D5W 50 ML IV SCH (08:34)
[2021-05-20] MEDS: Ensure HIGH Protein Chocolate 8oz Bottle GT SCH ×3 (08:34→17:43)
[2021-05-20 09:00] VITALS: BP 139/59
[2021-05-20] MEDS: CHOLECALCIFEROL (VITD3) 2,000 UNIT CAP/TAB PO SCH (10:44)
[2021-05-20] MEDS: AMIODARONE HCL 200 MG TAB GT SCH (10:45)
[2021-05-20] MEDS: ZINC SULFATE 220mg CAP or TAB GT SCH (10:45)
[2021-05-20] MEDS: ASCORBIC ACID 1,000 MG TAB GT SCH (10:45)
[2021-05-20] MEDS: ENOXAPARIN SOD 40 MG/0.4 ML SYRINGE SC SCH (10:45)
[2021-05-20] MEDS: ASPirin 81 mg TAB GT SCH (10:45)
[2021-05-20] MEDS: DexAMETHasone SOD PHOS 10MG/1ML VIAL INJ IV SCH (10:46)
[2021-05-20] MEDS: OMEPRAZOLE 20MG/10ML ORAL SUSP GT SCH (12:12)
[2021-05-20 13:00] VITALS: BP 153/69
[2021-05-20] MEDS ORDERED: IOHEXOL 350 MG/ML 100ML IJ ONE (14:54)
[2021-05-20] MEDS: REMDESIVIR 100mg 100 MG in SODIUM CHL 0.9% 230 ML IV SCH (15:24)
[2021-05-20 17:00] VITALS: BP 133/58
[2021-05-20] MEDS: TAMSULOSIN HYDROCHLORIDE 0.4 MG CAP PO SCH (17:43)
[2021-05-20 22:00] VITALS: BP 149/69
[2021-05-21] MEDS: AMIODARONE HCL 200 MG TAB GT SCH ×3 (01:58→21:54)
[2021-05-21] MEDS: ATORVASTATIN 20 MG TAB PO SCH ×2 (01:58→21:55)
[2021-05-21] MEDS: ENOXAPARIN SOD 40 MG/0.4 ML SYRINGE SC SCH ×3 (01:59→21:55)
[2021-05-21 05:00] VITALS: BP 129/64
[2021-05-21 05:47] LABS: Calcium 7.7 mg/dL (8.5-10.1); Magnesium 2.5 mg/dL (1.6-2.6); Potassium 3.4 mmol/L (3.5-5.1)
[2021-05-21 05:50] LABS: BUN/Creatinine Ratio 34.7
[2021-05-21] MEDS: BUDESONIDE (INHALATION) 0.5 MG/2 ML NEB NEB SCH ×2 (06:28→21:20)
[2021-05-21] MEDS: ALBUTEROL SULF 2.5 MG/0.5ML(0.5%) NEB SOLN NEB PRN ×2 (06:28→21:20)
[2021-05-21] MEDS: cefTRIAXone 1GM/50ML D5W 50 ML IV SCH (08:55)
[2021-05-21] MEDS: ASCORBIC ACID 1,000 MG TAB GT SCH (08:56)
[2021-05-21] MEDS: ASPirin 81 mg TAB GT SCH (08:56)
[2021-05-21] MEDS: CHOLECALCIFEROL (VITD3) 2,000 UNIT CAP/TAB PO SCH (08:56)
[2021-05-21] MEDS: ZINC SULFATE 220mg CAP or TAB GT SCH (08:56)
[2021-05-21] MEDS: DexAMETHasone SOD PHOS 10MG/1ML VIAL INJ IV SCH (08:57)
[2021-05-21] MEDS: Ensure HIGH Protein Chocolate 8oz Bottle GT SCH ×3 (08:57→18:13)
[2021-05-21 09:00] VITALS: BP 140/61
[2021-05-21] MEDS ORDERED: POTASSIUM EFFERVESENT TAB 25 MEQ GT ONE (09:00)
[2021-05-21] MEDS: OMEPRAZOLE 20MG/10ML ORAL SUSP GT SCH (10:36)
[2021-05-21 12:31] VITALS: BP 144/63
[2021-05-21 17:00] VITALS: BP 138/62
[2021-05-21] MEDS: TAMSULOSIN HYDROCHLORIDE 0.4 MG CAP PO SCH (18:15)
[2021-05-21] MEDS ORDERED: HYDROcodone-ACET 5/325MG TAB PO PRN (18:30)
[2021-05-21 19:43] VITALS: BP 138/62
[2021-05-21 21:53] VITALS: BP 135/61
[2021-05-22] MEDS ORDERED: dilTIAZem 25 MG/5 ML VIAL IV ONE (04:15)
[2021-05-22 04:53] VITALS: BP 118/69
[2021-05-22 05:44] LABS: Basophils # (auto) 0 10 ^3/uL (0-0.2); Basophils % (auto) 0.1 % (0.0-2.0); Eosinophils # (auto) 0 10 ^3/uL (0-0.8); Hemoglobin 11.4 g/dL (13.5-17.5); Lymphocytes # (auto) 0.5 10 ^3/uL (0.4-5.4); Lymphocytes % (auto) 6.8 % (10.0-50.0); Mean Corpuscular Hemoglobin 29.8 pg (28.0-32.0); Mean Corpuscular Hgb Conc. 34.5 g/dL (32.0-36.0); Mean Corpuscular Volume 86.6 fL (80.0-100.0); Monocytes # (auto) 0.6 10 ^3/uL (0-1.3); Monocytes % (auto) 8.4 % (0.0-12.0); Neutrophils # (auto) 5.6 10 ^3/uL (1.6-8.6); Neutrophils % (auto) 84.7 % (37.0-80.0); Red Blood Cells 3.82 10^6/uL (4.5-5.90); Red Cell Distribution Width 15.4 % (11.8-14.3); White Blood Cell 6.6 10^3/uL (4.4-10.8)
[2021-05-22] MEDS: ALBUTEROL SULF 2.5 MG/0.5ML(0.5%) NEB SOLN NEB PRN ×2 (05:47→19:51)
[2021-05-22] MEDS: BUDESONIDE (INHALATION) 0.5 MG/2 ML NEB NEB SCH ×2 (05:48→19:51)
[2021-05-22 06:12] LABS: Calcium 8.2 mg/dL (8.5-10.1)
[2021-05-22 06:15] LABS: BUN/Creatinine Ratio 35.8
[2021-05-22 08:00] VITALS: BP 106/55
[2021-05-22] MEDS: cefTRIAXone 1GM/50ML D5W 50 ML IV SCH (09:21)
[2021-05-22] MEDS: Ensure HIGH Protein Chocolate 8oz Bottle GT SCH ×3 (09:21→17:31)
[2021-05-22] MEDS: ASPirin 81 mg TAB GT SCH (09:22)
[2021-05-22] MEDS: AMIODARONE HCL 200 MG TAB GT SCH ×2 (09:22→20:53)
[2021-05-22] MEDS: ASCORBIC ACID 1,000 MG TAB GT SCH (09:22)
[2021-05-22] MEDS: ZINC SULFATE 220mg CAP or TAB GT SCH (09:22)
[2021-05-22] MEDS: ENOXAPARIN SOD 40 MG/0.4 ML SYRINGE SC SCH ×2 (09:23→20:53)
[2021-05-22] MEDS: CHOLECALCIFEROL (VITD3) 2,000 UNIT CAP/TAB PO SCH (09:23)
[2021-05-22] MEDS: DexAMETHasone SOD PHOS 10MG/1ML VIAL INJ IV SCH (09:23)
[2021-05-22] MEDS: OMEPRAZOLE 20MG/10ML ORAL SUSP GT SCH (10:45)
[2021-05-22] MEDS ORDERED: SODIUM CHLORIDE 0.9% 1,000 ML IV SCH (11:15)
[2021-05-22 12:07] VITALS: BP 127/60
[2021-05-22 16:58] VITALS: BP 126/60
[2021-05-22] MEDS: TAMSULOSIN HYDROCHLORIDE 0.4 MG CAP PO SCH (17:31)
[2021-05-22] MEDS: ATORVASTATIN 20 MG TAB PO SCH (20:53)
[2021-05-22 21:24] VITALS: BP 124/55
[2021-05-22] MEDS ORDERED: CARVEDILOL 3.125 MG TAB PO SCH (22:00)
[2021-05-23 06:06] VITALS: BP 155/52
[2021-05-23] MEDS: ALBUTEROL SULF 2.5 MG/0.5ML(0.5%) NEB SOLN NEB PRN (06:17)
[2021-05-23] MEDS: BUDESONIDE (INHALATION) 0.5 MG/2 ML NEB NEB SCH (06:17)
[2021-05-23 08:00] VITALS: BP 141/56
[2021-05-23 09:00] VITALS: BP 141/56
[2021-05-23] MEDS: ZINC SULFATE 220mg CAP or TAB GT SCH (09:40)
[2021-05-23] MEDS: Ensure HIGH Protein Chocolate 8oz Bottle GT SCH ×2 (09:40→14:51)
[2021-05-23] MEDS: ASPirin 81 mg TAB GT SCH (09:40)
[2021-05-23] MEDS: cefTRIAXone 1GM/50ML D5W 50 ML IV SCH (09:40)
[2021-05-23] MEDS: DexAMETHasone SOD PHOS 10MG/1ML VIAL INJ IV SCH (09:41)
[2021-05-23] MEDS: ASCORBIC ACID 1,000 MG TAB GT SCH (09:41)
[2021-05-23] MEDS: CHOLECALCIFEROL (VITD3) 2,000 UNIT CAP/TAB PO SCH (09:41)
[2021-05-23] MEDS: AMIODARONE HCL 200 MG TAB GT SCH (09:41)
[2021-05-23] MEDS: ENOXAPARIN SOD 40 MG/0.4 ML SYRINGE SC SCH (09:42)
[2021-05-23] MEDS: OMEPRAZOLE 20MG/10ML ORAL SUSP GT SCH (09:44)
[2021-05-23] MEDS ORDERED: METOPROLOL TARTRATE 25 MG TAB PO SCH (10:00)
[2021-05-23] MEDS ORDERED: METOPROLOL TARTRATE 25 MG TAB GT SCH (10:00)
[2021-05-23] MEDS ORDERED: ASPI-378 GT (11:29)
[2021-05-23] MEDS ORDERED: DEX4T GT (11:29)
[2021-05-23] MEDS ORDERED: ALBUAER3 IN (11:29)
[2021-05-23] MEDS ORDERED: CHOL20007 GT (11:29)
[2021-05-23] MEDS ORDERED: AMIO200T33 GT (11:29)
[2021-05-23] MEDS ORDERED: DOXY-286 GT (11:29)
[2021-05-23] MEDS ORDERED: ZINC220T6 GT (11:29)
[2021-05-23] MEDS ORDERED: BUDE2SUS3 IN (11:29)
[2021-05-23] MEDS ORDERED: ASCO10003 GT (11:29)
[2021-05-23] MEDS ORDERED: MET25T GT (11:29)
[2021-05-23 14:19] VITALS: BP 118/57
[2021-05-23 17:00] VITALS: BP 122/52
[2021-05-23] MEDS ORDERED: DOXYCYCLINE 100 MG TAB/CAP PO SCH (22:00)
[2021-05-24] MEDS ORDERED: DexAMETHasone 4 MG TAB PO SCH (10:00)
[2021-05-29] MEDS ORDERED: DexAMETHasone 4 MG TAB PO SCH (10:00)
== END 2021-05-23 18:33 | DRG 177 ==
LOC: EDBD 18:25 → ER 18:56 → TELE 21:39 → TELE-EAST 05-16 16:17
PROVIDERS: ADMIT Nurse Practitioner; ATTEND Internal Medicine
PROC: XW033E5 Introduction of Remdesivir Anti-infective into Peripheral Vein, Percutaneous Approach, New Technology Group 5 (ICD-10-PCS; principal; 2021-05-16)
PROC: 05HC33Z Insertion of Infusion Device into Left Basilic Vein, Percutaneous Approach (ICD-10-PCS; 2021-05-19)
PROC: B54NZZA Ultrasonography of Left Upper Extremity Veins, Guidance (ICD-10-PCS; 2021-05-19)
DX: U07.1 COVID-19 (principal); J96.01 Acute respiratory failure with hypoxia; J12.82 Pneumonia due to coronavirus disease 2019; I21.A1 Myocardial infarction type 2; I50.43 Acute on chronic combined systolic (congestive) and diastolic (congestive) heart failure; E87.1 Hypo-osmolality and hyponatremia; I47.1 Supraventricular tachycardia; D89.839 Cytokine release syndrome, grade unspecified; D64.9 Anemia, unspecified; K21.9 Gastro-esophageal reflux disease without esophagitis; N40.0 Benign prostatic hyperplasia without lower urinary tract symptoms; Z74.01 Bed confinement status; I25.10 Atherosclerotic heart disease of native coronary artery without angina pectoris; D69.59 Other secondary thrombocytopenia; I11.0 Hypertensive heart disease with heart failure; E55.9 Vitamin D deficiency, unspecified; R00.1 Bradycardia, unspecified; M10.9 Gout, unspecified; E87.6 Hypokalemia; I48.91 Unspecified atrial fibrillation; I95.2 Hypotension due to drugs; Z83.3 Family history of diabetes mellitus; I25.2 Old myocardial infarction; Z80.3 Family history of malignant neoplasm of breast; Z80.42 Family history of malignant neoplasm of prostate; Z82.49 Family history of ischemic heart disease and other diseases of the circulatory system; Z86.73 Personal history of transient ischemic attack (TIA), and cerebral infarction without residual deficits; Z95.1 Presence of aortocoronary bypass graft; Z95.3 Presence of xenogenic heart valve
CPT/HCPCS: 36415; 36600; 71045; 71275; 80048; 80053; 80061; 82306; 82728; 82805; 83036; 83605; 83615; 83735; 83880; 84443; 84484; 85025; 85379; 85610; 86141; 87040; 87426; 92610; 93005; 93306; 93970; 94640; 96365; 96367; 96375; 97110; 99291; G0378; J0153; J0696; J1100

== ENCOUNTER 2021-06-06 20:52 | Inpatient (IN) | payer MEDICARE ==
[~2021-06-06] VITALS: Ht 182.9 cm; Wt 67.5 kg
[~2021-06-06 20:52] MED LIST changes: +ALBUAER3 IN; +AMIO200T33 GT; +ASCO10003 GT; -ASCO500T11 PO; +ASPI-378 GT; +BUDE2SUS3 IN; +CHOL20007 GT; +DEX4T GT; +DOXY-286 GT; +MET25T GT; +ZINC220T6 GT
[2021-06-06] MEDS ORDERED: SODIUM CHLORIDE 0.9% 500 ML IV ONE (22:00)
[2021-06-06 23:21] LABS: Basophils # (auto) 0 10 ^3/uL (0-0.2); Basophils % (auto) 0.5 % (0.0-2.0); Eosinophils # (auto) 0.1 10 ^3/uL (0-0.8); Eosinophils % (auto) 1.5 % (0.0-7.0); Hematocrit 31.1 % (41.0-53.0); Hemoglobin 10.5 g/dL (13.5-17.5); Lymphocytes # (auto) 0.7 10 ^3/uL (0.4-5.4); Lymphocytes % (auto) 10.2 % (10.0-50.0); Mean Corpuscular Hemoglobin 29.6 pg (28.0-32.0); Mean Corpuscular Hgb Conc. 33.6 g/dL (32.0-36.0); Mean Corpuscular Volume 88.2 fL (80.0-100.0); Monocytes # (auto) 0.6 10 ^3/uL (0-1.3); Monocytes % (auto) 8.4 % (0.0-12.0); Neutrophils # (auto) 5.4 10 ^3/uL (1.6-8.6); Neutrophils % (auto) 79.4 % (37.0-80.0); Red Blood Cells 3.53 10^6/uL (4.5-5.90); Red Cell Distribution Width 15.8 % (11.8-14.3); White Blood Cell 6.8 10^3/uL (4.4-10.8)
[2021-06-06 23:45] LABS: Albumin 1.7 g/dL (3.4-5.0); Magnesium 2.5 mg/dL (1.6-2.6); Potassium 4.7 mmol/L (3.5-5.1)
[2021-06-06 23:51] LABS: BUN/Creatinine Ratio 33.3; Bilirubin, Total 0.4 mg/dL (0.2-1.0)
[2021-06-07] MEDS ORDERED: ACETAMINOPHEN 500 MG TAB PO ONE
[2021-06-07] MEDS ORDERED: IODIXANOL 320MG/ML 100ML BTL IV ONE (00:13)
[2021-06-07] MEDS ORDERED: InsuLIN REG 1unit/0.01ml Soln (100units/ml) IV ONE (00:15)
[2021-06-07] MEDS ORDERED: AZITHROMYCIN 500MG/ 250ML 250 ML IV ONE (00:45)
[2021-06-07] MEDS ORDERED: cefTRIAXone 1GM/50ML D5W 50 ML IV ONE (00:45)
[2021-06-07 00:57] LABS: Urine Bacteria MOD /hpf (None Seen); Urine Blood 2+ /uL (Negative); Urine Budding Yeast LOADED /hpf (None Seen); Urine Specific Gravity 1.017 (1.001-1.035); Urine WBC 66 /hpf (0 - 3); Urine WBC Clumps PRESENT /hpf (None Seen)
[2021-06-07] MEDS ORDERED: SODIUM CHLORIDE 0.9% 1,000 ML IV SCH (02:45)
[2021-06-07] MEDS ORDERED: DEXTROSE (50%) 50ML SYRG IV PRN (02:45)
[2021-06-07] MEDS ORDERED: NITROGLYCERIN 0.4 MG SL TAB SL PRN (02:45)
[2021-06-07] MEDS ORDERED: MORPHINE SULFATE INJECTION 2 MG/ML SYRG IV PRN (02:45)
[2021-06-07] MEDS ORDERED: ONDANSETRON HCL 4 MG/2 ML VIAL IV PRN (02:45)
[2021-06-07] MEDS ORDERED: ACETAMINOPHEN 325 MG TAB PO PRN (02:45)
[2021-06-07] MEDS ORDERED: ALBUMIN 5% 250 ML IV ONE (03:15)
[2021-06-07] MEDS: ACCU-CHEK COMFORT CURVE STRIP VI SCH ×3 (06:58→18:48)
[2021-06-07] MEDS: InsuLIN REG 1unit/0.01ml Soln (100units/ml) SC SCH ×3 (07:00→18:51)
[2021-06-07] MEDS: BUDESONIDE (INHALATION) 0.5 MG/2 ML NEB NEB SCH ×2 (08:05→19:20)
[2021-06-07] MEDS: ALBUTEROL SULF 2.5 MG/0.5ML(0.5%) NEB SOLN NEB SCH ×3 (08:05→19:20)
[2021-06-07] MEDS ORDERED: ZINC SULFATE 220mg CAP or TAB PO SCH (10:00)
[2021-06-07] MEDS ORDERED: ASCORBIC ACID 500 MG TAB PO SCH (10:00)
[2021-06-07] MEDS ORDERED: PANTOPRAZOLE 40 MG TAB PO SCH (10:00)
[2021-06-07] MEDS ORDERED: DexAMETHasone SOD PHOS 10MG/1ML VIAL INJ IV SCH (10:00)
[2021-06-07] MEDS: METOPROLOL TARTRATE 25 MG TAB PO SCH ×2 (10:04→21:15)
[2021-06-07] MEDS: AMIODARONE HCL 200 MG TAB PO SCH ×2 (10:04→21:16)
[2021-06-07] MEDS: ENOXAPARIN SOD 40 MG/0.4 ML SYRINGE SC SCH (10:05)
[2021-06-07 13:56] VITALS: BP 106/43
[2021-06-07 18:43] VITALS: BP 108/51
[2021-06-07] MEDS: TAMSULOSIN HYDROCHLORIDE 0.4 MG CAP PO SCH (19:01)
[2021-06-07] MEDS: metroNIDAZOLE 500MG/100ML 100 ML IV SCH (21:14)
[2021-06-07 22:00] VITALS: BP 108/51
[2021-06-07] MEDS ORDERED: cefTRIAXone 1GM/50ML D5W 50 ML IV SCH (22:00)
[2021-06-07] MEDS ORDERED: AZITHROMYCIN 500MG/ 250ML 250 ML IV SCH (22:00)
[2021-06-08] MEDS: ALBUTEROL SULF 2.5 MG/0.5ML(0.5%) NEB SOLN NEB SCH ×5 (00:25→22:09)
[2021-06-08 05:00] VITALS: BP 117/53
[2021-06-08] MEDS: ACCU-CHEK COMFORT CURVE STRIP VI SCH ×5 (06:13→23:36)
[2021-06-08] MEDS: metroNIDAZOLE 500MG/100ML 100 ML IV SCH (06:20)
[2021-06-08] MEDS: InsuLIN REG 1unit/0.01ml Soln (100units/ml) SC SCH ×5 (06:25→23:37)
[2021-06-08] MEDS: BUDESONIDE (INHALATION) 0.5 MG/2 ML NEB NEB SCH ×2 (07:06→18:39)
[2021-06-08 07:24] LABS: Basophils # (auto) 0 10 ^3/uL (0-0.2); Basophils % (auto) 0.1 % (0.0-2.0); Eosinophils # (auto) 0 10 ^3/uL (0-0.8); Hematocrit 26.2 % (41.0-53.0); Lymphocytes # (auto) 0.5 10 ^3/uL (0.4-5.4); Lymphocytes % (auto) 9.7 % (10.0-50.0); Mean Corpuscular Hgb Conc. 34.4 g/dL (32.0-36.0); Mean Corpuscular Volume 87.2 fL (80.0-100.0); Monocytes # (auto) 0.3 10 ^3/uL (0-1.3); Monocytes % (auto) 5.1 % (0.0-12.0); Neutrophils # (auto) 4.8 10 ^3/uL (1.6-8.6); Neutrophils % (auto) 85.1 % (37.0-80.0); Red Cell Distribution Width 15.6 % (11.8-14.3); White Blood Cell 5.6 10^3/uL (4.4-10.8)
[2021-06-08 07:43] LABS: Albumin 1.8 g/dL (3.4-5.0); Calcium 7.9 mg/dL (8.5-10.1); Potassium 4.6 mmol/L (3.5-5.1)
[2021-06-08 07:47] LABS: Bilirubin, Total 0.4 mg/dL (0.2-1.0); Total Protein 6.1 g/dL (6.4-8.2)
[2021-06-08 09:00] VITALS: BP 99/50
[2021-06-08] MEDS ORDERED: levoFLOXacin 500MG 100 ML IV SCH (10:00)
[2021-06-08] MEDS: ENOXAPARIN SOD 40 MG/0.4 ML SYRINGE SC SCH (10:49)
[2021-06-08] MEDS ORDERED: FINA5TAB4 GT (11:32)
[2021-06-08] MEDS ORDERED: HYDR-4833 GT (11:32)
[2021-06-08] MEDS ORDERED: ACET-1156 GT (11:32)
[2021-06-08] MEDS ORDERED: OME20GT GT (11:32)
[2021-06-08] MEDS ORDERED: MAGNSUS48 GT (11:32)
[2021-06-08] MEDS ORDERED: ENO40SY SUBCUT (11:32)
[2021-06-08] MEDS ORDERED: ALBU1.257 IN (11:32)
[2021-06-08] MEDS ORDERED: CHOL20007 GT (11:32)
[2021-06-08] MEDS ORDERED: BUDE0.5S IN (11:32)
[2021-06-08] MEDS ORDERED: SODIENE35 RE (11:32)
[2021-06-08] MEDS ORDERED: MAGN400T40 GT (11:32)
[2021-06-08] MEDS ORDERED: BISA10SU45 RE (11:32)
[2021-06-08] MEDS ORDERED: NITR0.4S29 SL (11:32)
[2021-06-08 13:00] VITALS: BP 103/49
[2021-06-08] MEDS: AMIODARONE HCL 200 MG TAB GT SCH ×2 (14:15→22:31)
[2021-06-08] MEDS ORDERED: Jevity 1.2 Cal/Fiber 1 Liter GT SCH (14:15)
[2021-06-08] MEDS: METOPROLOL TARTRATE 25 MG TAB GT SCH ×2 (14:15→22:00)
[2021-06-08 16:18] VITALS: BP 95/63
[2021-06-08] MEDS: TAMSULOSIN HYDROCHLORIDE 0.4 MG CAP PO SCH (18:00)
[2021-06-08] MEDS: PIPERACILLIN-TAZOB 3.375GM 100 ML IV SCH ×2 (18:18→23:36)
[2021-06-08 22:00] VITALS: BP 93/34
[2021-06-09 05:00] VITALS: BP 91/41
[2021-06-09] MEDS: PIPERACILLIN-TAZOB 3.375GM 100 ML IV SCH ×2 (05:35→12:28)
[2021-06-09] MEDS: ACETAMINOPHEN 650 mg PER 20.3 mL UD GT PRN ×2 (05:35→11:41)
[2021-06-09] MEDS: ACCU-CHEK COMFORT CURVE STRIP VI SCH ×4 (05:36→23:21)
[2021-06-09] MEDS: InsuLIN REG 1unit/0.01ml Soln (100units/ml) SC SCH ×4 (05:59→23:23)
[2021-06-09] MEDS: ALBUTEROL SULF 2.5 MG/0.5ML(0.5%) NEB SOLN NEB SCH ×3 (07:05→18:30)
[2021-06-09] MEDS: BUDESONIDE (INHALATION) 0.5 MG/2 ML NEB NEB SCH ×2 (07:05→18:31)
[2021-06-09 09:00] VITALS: BP 98/34
[2021-06-09] MEDS: ENOXAPARIN SOD 40 MG/0.4 ML SYRINGE SC SCH (09:41)
[2021-06-09] MEDS: METOPROLOL TARTRATE 25 MG TAB GT SCH ×2 (09:42→21:44)
[2021-06-09] MEDS: AMIODARONE HCL 200 MG TAB GT SCH ×2 (09:43→21:43)
[2021-06-09] MEDS ORDERED: AZITHROMYCIN 500MG/ 250ML 250 ML IV SCH (10:00)
[2021-06-09 13:00] VITALS: BP 99/45
[2021-06-09] MEDS ORDERED: Glucerna 1.2 Cal 1Liter BOTTLE GT SCH (15:45)
[2021-06-09] MEDS ORDERED: levoFLOXacin 500MG 100 ML IV ONE (16:30)
[2021-06-09 17:00] VITALS: BP 110/46
[2021-06-09] MEDS: TAMSULOSIN HYDROCHLORIDE 0.4 MG CAP PO SCH (17:37)
[2021-06-09 22:00] VITALS: BP 99/44
[2021-06-10] MEDS: ALBUTEROL SULF 2.5 MG/0.5ML(0.5%) NEB SOLN NEB SCH ×5 (00:29→23:39)
[2021-06-10 05:00] VITALS: BP 113/58
[2021-06-10] MEDS: ACCU-CHEK COMFORT CURVE STRIP VI SCH ×3 (05:54→18:00)
[2021-06-10] MEDS: InsuLIN REG 1unit/0.01ml Soln (100units/ml) SC SCH ×3 (06:13→18:00)
[2021-06-10] MEDS: BUDESONIDE (INHALATION) 0.5 MG/2 ML NEB NEB SCH ×2 (07:32→18:00)
[2021-06-10 09:00] VITALS: BP 128/54
[2021-06-10 09:45] VITALS: BP 124/54
[2021-06-10] MEDS: ENOXAPARIN SOD 40 MG/0.4 ML SYRINGE SC SCH (10:00)
[2021-06-10] MEDS: AMIODARONE HCL 200 MG TAB GT SCH ×2 (10:00→22:14)
[2021-06-10] MEDS: METOPROLOL TARTRATE 25 MG TAB GT SCH ×2 (10:00→22:14)
[2021-06-10] MEDS: levoFLOXacin 250MG 50 ML IV SCH (10:00)
[2021-06-10 13:00] VITALS: BP 125/64
[2021-06-10 17:00] VITALS: BP 148/71
[2021-06-10] MEDS: TAMSULOSIN HYDROCHLORIDE 0.4 MG CAP PO SCH (18:00)
[2021-06-10] MEDS: ACETAMINOPHEN 650 mg PER 20.3 mL UD GT PRN (18:00)
[2021-06-10 21:48] VITALS: BP 118/48
[2021-06-11] MEDS: ACCU-CHEK COMFORT CURVE STRIP VI SCH ×4 (00:01→18:00)
[2021-06-11] MEDS: InsuLIN REG 1unit/0.01ml Soln (100units/ml) SC SCH ×5 (00:03→23:59)
[2021-06-11] MEDS: ACETAMINOPHEN 650 mg PER 20.3 mL UD GT PRN (02:48)
[2021-06-11 05:15] VITALS: BP 100/57
[2021-06-11] MEDS: ALBUTEROL SULF 2.5 MG/0.5ML(0.5%) NEB SOLN NEB SCH ×4 (05:46→23:47)
[2021-06-11] MEDS: BUDESONIDE (INHALATION) 0.5 MG/2 ML NEB NEB SCH ×2 (05:46→18:06)
[2021-06-11 09:00] VITALS: BP 92/53
[2021-06-11] MEDS: levoFLOXacin 250MG 50 ML IV SCH (10:00)
[2021-06-11] MEDS: METOPROLOL TARTRATE 25 MG TAB GT SCH ×2 (10:00→21:55)
[2021-06-11] MEDS: AMIODARONE HCL 200 MG TAB GT SCH ×2 (10:00→21:54)
[2021-06-11 11:59] VITALS: BP 98/53
[2021-06-11] MEDS ORDERED: FLUCONAZOLE 200MG/100ML 100 ML IV SCH ×2 (12:00)
[2021-06-11] MEDS: ENOXAPARIN SOD 40 MG/0.4 ML SYRINGE SC SCH (13:38)
[2021-06-11] MEDS: FLUCONAZOLE 200MG/100ML 100 ML IV SCH (15:01)
[2021-06-11 16:00] VITALS: BP 109/69
[2021-06-11] MEDS: TAMSULOSIN HYDROCHLORIDE 0.4 MG CAP PO SCH (18:00)
[2021-06-11 22:00] VITALS: BP 94/57
[2021-06-11] MEDS ORDERED: ALBUMIN 5% 250 ML IV ONE (23:15)
[2021-06-12] MEDS: ACCU-CHEK COMFORT CURVE STRIP VI SCH ×4 (00:21→18:00)
[2021-06-12] MEDS ORDERED: dilTIAZem 25 MG/5 ML VIAL IV ONE (00:45)
[2021-06-12 05:00] VITALS: BP 92/58
[2021-06-12] MEDS: ACETAMINOPHEN 650 mg PER 20.3 mL UD GT PRN (05:30)
[2021-06-12] MEDS: InsuLIN REG 1unit/0.01ml Soln (100units/ml) SC SCH ×3 (05:41→18:00)
[2021-06-12 06:07] LABS: BUN/Creatinine Ratio 31.7; Calcium 7.8 mg/dL (8.5-10.1); Potassium 4.4 mmol/L (3.5-5.1)
[2021-06-12 06:13] LABS: Basophils # (auto) 0 10 ^3/uL (0-0.2); Basophils % (auto) 0.2 % (0.0-2.0); Eosinophils # (auto) 0.3 10 ^3/uL (0-0.8); Eosinophils % (auto) 4.2 % (0.0-7.0); Hematocrit 27.6 % (41.0-53.0); Hemoglobin 9.3 g/dL (13.5-17.5); Lymphocytes # (auto) 0.8 10 ^3/uL (0.4-5.4); Lymphocytes % (auto) 9.9 % (10.0-50.0); Mean Corpuscular Hemoglobin 29.6 pg (28.0-32.0); Mean Corpuscular Hgb Conc. 33.8 g/dL (32.0-36.0); Mean Corpuscular Volume 87.7 fL (80.0-100.0); Monocytes # (auto) 0.7 10 ^3/uL (0-1.3); Monocytes % (auto) 9.3 % (0.0-12.0); Neutrophils # (auto) 5.9 10 ^3/uL (1.6-8.6); Neutrophils % (auto) 76.4 % (37.0-80.0); Red Blood Cells 3.15 10^6/uL (4.5-5.90); Red Cell Distribution Width 15.8 % (11.8-14.3); White Blood Cell 7.7 10^3/uL (4.4-10.8)
[2021-06-12] MEDS: ALBUTEROL SULF 2.5 MG/0.5ML(0.5%) NEB SOLN NEB SCH ×2 (06:26→12:38)
[2021-06-12] MEDS: BUDESONIDE (INHALATION) 0.5 MG/2 ML NEB NEB SCH (06:30)
[2021-06-12 09:00] VITALS: BP 94/56
[2021-06-12] MEDS: AMIODARONE HCL 200 MG TAB GT SCH (09:58)
[2021-06-12] MEDS: METOPROLOL TARTRATE 25 MG TAB GT SCH (09:58)
[2021-06-12] MEDS: ENOXAPARIN SOD 40 MG/0.4 ML SYRINGE SC SCH (09:59)
[2021-06-12] MEDS ORDERED: levoFLOXacin 500MG 100 ML IV SCH (10:00)
[2021-06-12] MEDS: FLUCONAZOLE 200MG/100ML 100 ML IV SCH (12:24)
[2021-06-12 13:00] VITALS: BP 105/69
[2021-06-12] MEDS: AMPICILLIN SOD 2GM INJ 2 GM in SODIUM CHL 0.9% 100 ML IV SCH ×2 (13:28→18:00)
[2021-06-12 16:44] VITALS: BP 94/60
[2021-06-12] MEDS: TAMSULOSIN HYDROCHLORIDE 0.4 MG CAP PO SCH (18:00)
== END 2021-06-12 18:00 | disposition hospice, home (50) | DRG 393 ==
LOC: ER 20:52 → EDBD 20:52 → TELE 06-07 02:46 → TELE-WESTW 06-07 18:18
PROVIDERS: ADMIT Nurse Practitioner; ATTEND Internal Medicine
DX: K62.89 Other specified diseases of anus and rectum (principal); J18.9 Pneumonia, unspecified organism; E43 Unspecified severe protein-calorie malnutrition; Z68.1 Body mass index [BMI] 19.9 or less, adult; N30.00 Acute cystitis without hematuria; F03.90 Unspecified dementia, unspecified severity, without behavioral disturbance, psychotic disturbance, mood disturbance, and anxiety; E11.9 Type 2 diabetes mellitus without complications; I10 Essential (primary) hypertension; I25.10 Atherosclerotic heart disease of native coronary artery without angina pectoris; L89.90 Pressure ulcer of unspecified site, unspecified stage; I48.0 Paroxysmal atrial fibrillation; I95.9 Hypotension, unspecified; B95.2 Enterococcus as the cause of diseases classified elsewhere; B37.9 Candidiasis, unspecified; B96.5 Pseudomonas (aeruginosa) (mallei) (pseudomallei) as the cause of diseases classified elsewhere; M10.9 Gout, unspecified; Z80.3 Family history of malignant neoplasm of breast; Z80.42 Family history of malignant neoplasm of prostate; Z82.49 Family history of ischemic heart disease and other diseases of the circulatory system; Z86.73 Personal history of transient ischemic attack (TIA), and cerebral infarction without residual deficits; Z87.01 Personal history of pneumonia (recurrent); Z93.1 Gastrostomy status; I25.2 Old myocardial infarction; Z83.3 Family history of diabetes mellitus; U09.9 Post COVID-19 condition, unspecified
CPT/HCPCS: 36415; 70450; 71045; 74177; 80048; 80053; 81001; 82962; 83605; 83690; 83735; 83880; 84484; 85025; 87040; 87086; 87088; 87186; 87426; 93005; 94640; 96361; 96374; G0378; J0696; J1100; J1450; J1815; J1956; J2543; J3490; Q9967